=== PATIENT | female | born 1945 | race African-American/Black ===

== ENCOUNTER 2016-12-18 09:15 | Inpatient (IN) | payer MEDICARE ==
[~2016-12-18] VITALS: Ht 157.5 cm; Wt 73.8 kg
[2016-12-18 09:49] LABS: BASOPHILS 0.1 % (0-2); EOSINOPHILS 0.1 % (0-7); HEMATOCRIT 37.9 % (36.0-48.0); HEMOGLOBIN 12.6 g/dL (12-16); IMMATURE GRANULOCYTES 0.2 % (0-5); LYMPHOCYTES 13.2 % (15-50); MCHC 33.2 g/dL (31.0-37.0); MCV 93.1 fL (80.0-100.0); MONOCYTES 3.7 % (2-11); NEUTROPHILS 82.7 % (40-80); PLATELET COUNT 292 10x3/uL (130-400); RBC 4.07 10x6/uL (4.00-5.40); RDW 13.7 % (11.5-14.5); WBC 8.9 10x3/uL (4.8-10.8)
[2016-12-18 09:56] LABS: APPEARANCE CLOUDY (CLEAR); BILIRUBIN NEGATIVE (NEGATIVE); COLOR YELLOW (YELLOW); GLUCOSE NEGATIVE (NEGATIVE); KETONE MODERATE mg/dL (NEGATIVE); LEUKOCYTE ESTERASE NEGATIVE (NEGATIVE); NITRITE NEGATIVE (NEGATIVE); PROTEIN NEGATIVE (NEGATIVE); SPECIFIC GRAVITY 1.025 (1.005-1.020); UROBILINOGEN NORMAL (NORMAL)
[2016-12-18 09:57] LABS: BACTERIA MANY /hpf (NONE SEEN); HYALINE CAST OCC /lpf (NONE SEEN); MUCUS >1+ /lpf (NONE SEEN); RED CELLS - URINE 0-5 /hpf (0-5); WHITE CELLS - URINE OCC /hpf (0-5)
[2016-12-18 10:17] LABS: ALBUMIN 4.4 g/dL (3.4-5.0); ALKALINE PHOSPHATASE 68 U/L (46-116); ALT (SGPT) 20 U/L (10-68); BILIRUBIN - TOTAL 0.37 mg/dL (0.2-1.3); CALC OSMOLALITY 284 mosm/kg (275-300); CALCIUM 10.3 mg/dL (8.5-10.1); CARBON DIOXIDE 29.7 mmol/L (21.0-32.0); CHLORIDE - SERUM 100 mmol/L (98-107); CREATININE - SERUM 0.8 mg/dL (0.6-1.3); GLUCOSE 162 mg/dL (74-106); POTASSIUM - SERUM 3.4 mmol/L (3.5-5.1); PROTEIN - SERUM 7.9 g/dL (6.4-8.2); SODIUM 141 mmol/L (136-145); UREA NITROGEN 13 mg/dL (7-18); eGFR NON AFRICAN AMERICAN 75 mL/min (90-120)
[2016-12-18 10:19] LABS: LIPASE 99 U/L (73-393)
--- NOTE | 2016-12-18 15:03 | NUR ---
RECEIVED TO ROOM 2228 VIA STRETCHER FROM ER. A/O X3. C/O SOME ABDOMINAL DISCOMFORT. WILL MONITOR. SKIN IS INTACT WITHOUT REDNESS. IV TO LEFT FOREARM IS PATENT. NG TO LEFT NARE PATENT WITH GREENISH DISCHARGE NOTED.
[2016-12-18 15:30] VITALS: BP 140/78; BMI 28.4
[2016-12-18] MEDS ORDERED: COZAAR25 MG PO (15:50)
[2016-12-18] MEDS ORDERED: GLUCOPHAGE500 MG PO (15:50)
[2016-12-18] MEDS ORDERED: HYDROCHLOROTHIA25 MG GT (15:50)
[2016-12-18] MEDS ORDERED: NORVASC10 MG PO (15:51)
[2016-12-18] MEDS ORDERED: VICTOZA0.6 MG/0.1 SQ (15:52)
--- NOTE | 2016-12-18 17:00 | NUR ---
18 F POE PLACED USING STERILE TECHNIQUE. ENTIRE CONTENTS OF KIT UTILIZED. TOLERATED WELL.
--- NOTE | 2016-12-18 19:28 | NUR ---
DR. NGUYEN HERE EARLIER. HE STATED TO THE PATIENT HE THINKS SHE IS CONSTIPATED AND NOT A SBO. WILL MONITOR..
[2016-12-18 20:00] VITALS: BP 141/63
--- NOTE | 2016-12-18 21:46 | NUR ---
ALERT WITH NO COMPLAINTS VOICED. MAINTENANCE ASSISTANT MS IN USE FOR PAIN CONTROL. IV INFUSING TO LEFT FOREARM WITHOUT REDNESS OR EDEMA NOTED. NG TO LEFT NARE PATENT.CL IN REACH
[2016-12-19] VITALS (7 sets, daily range): BP systolic 116–141; BP diastolic 56–66; Ht 157.5 cm; Wt 73.8 kg
--- NOTE | 2016-12-19 03:06 | NUR ---
RESTING QUIETLY. NO DISTRESS NOTED. CL IN REACH.
--- NOTE | 2016-12-19 04:18 | NUR ---
EYES CLOSED RESPIRATIONS WITH EASE AND UNLABORED.
--- NOTE | 2016-12-19 06:08 | NUR ---
NO CHANGE IN ASSESSMENT. CL IN REACCH.
--- NOTE | 2016-12-19 07:45 | NUR ---
PT ASSESSMENT COMPLETE AWAKE AND ALERT ORIENTED X 3 LUNGS CLEAR BILATERALLY NGT TO LEFT NARE TO LIWS. NO BOWEL SOUNDS NOTED TO 4 QUADS ABDOMEN TENDER TO PALPATION. WILL MONITOR SIDE RAILS UP X 2 CALL LIGHT IN REACH .
--- NOTE | 2016-12-19 08:43 | HP ---
PATIENT: SAFIA GOLD MEDICAL RECORD: [id number] ACCOUNT: [id number] LOCATION:[facility] [place] [facility] : [birth year] ADMISSION DATE: 12/18/16 HISTORY AND PHYSICAL EXAMINATION DATE OF ADMISSION: 12/18/2016 ADMITTING PHYSICIAN: Mary Nguyen MD CHIEF COMPLAINT: Abdominal pain. HISTORY OF PRESENT ILLNESS: This is a 71-year-old female who complains of progressively worsening abdominal pain over the last 3 days. The pain is mainly located in the epigastric region and it is throbbing. She describes it as 6/10 and the pain is constant. It fluctuates in intensity. It is nonradiating. She states she has not had a bowel movement in 3 days. She has chronic constipation. No fever or chills at home. No dysuria, no hematuria. Denies any episodes of hematochezia or hematemesis. Denies melena. PAST MEDICAL HISTORY: COPD, hypertension, pneumonia and breast cancer. PAST SURGICAL HISTORY: Hysterectomy and bilateral mastectomy. ALLERGIES: No known drug allergies. HOME MEDICATIONS: Please see electronic medical record for full list of home medications. SOCIAL HISTORY: She drinks alcohol socially. FAMILY HISTORY: ____. REVIEW OF SYSTEMS: A 12-point review of system was obtained, pertinent positive and negative as per the HPI. PHYSICAL EXAMINATION: VITAL SIGNS: 97.9, heart rate 78, respirations 16, blood pressure ____ and satting 97% on room air. GENERAL: Well-nourished female in mild distress. EYES: Extraocular muscles are intact. EAR, NOSE, AND THROAT: Normal dentition. Mucous membranes are dry. NECK: Supple. CARDIOVASCULAR: Normal sinus rhythm. No murmur. LUNGS: Clear to auscultation bilaterally. No wheezing. ABDOMEN: Firm, moderately distended, tympanitic, diffusely tender to palpation. No guarding. No rebound. No peritoneal signs. No palpable hernia defects. SKIN: Warm and dry with normal turgor. EXTREMITIES: She is neurovascularly intact. No peripheral edema. NEUROLOGIC: She has a GCS of 15 with no focal deficits. LABORATORY DATA: Reviewed. Please see electronic medical record for full list of laboratory values. CT image was personally reviewed, which is consistent of partial small-bowel obstruction. HISTORY AND PHYSICAL [id number] SAFIA GOLD There is pain and dilatation of the small bowel with fecalization in the terminal ileum as well as stool throughout the colon consistent with partial small-bowel obstruction versus chronic constipation. PLAN: 1. Admit to med/surg, Dr. Nguyen. 2. IV fluid resuscitation. 3. IV narcotics for pain control. 4. IV antiemetics. 5. Suppository and enemas. 6. Repeat abdominal x-ray in a.m. 7. Repeat labs in a.m. TRANSINT:[id number] Voice Confirmation ID: [id number] DOCUMENT ID: [id number] MARY NGUYEN MD at 0843 CC: [id number] DICTATION DATE: 12/18/161943 LATEX FASHIONS DESIGNER: 12/19/16 0019 ADM IN [facility] [address] [place] [address]
--- NOTE | 2016-12-19 10:00 | NUR ---
NGT DISCONTINUED PER ORDER TOLERATED WELL. FAMILY AT SIDE
[2016-12-19 10:52] LABS: CALC OSMOLALITY 288 mosm/kg (275-300); CALCIUM 8.8 mg/dL (8.5-10.1); CARBON DIOXIDE 30.5 mmol/L (21.0-32.0); CHLORIDE - SERUM 107 mmol/L (98-107); CREATININE - SERUM 0.7 mg/dL (0.6-1.3); GLUCOSE 137 mg/dL (74-106); MAGNESIUM - SERUM 1.6 mg/dL (1.8-2.4); POTASSIUM - SERUM 3.4 mmol/L (3.5-5.1); SODIUM 145 mmol/L (136-145); eGFR NON AFRICAN AMERICAN 88 mL/min (90-120)
[2016-12-19 10:53] LABS: UREA NITROGEN 6 mg/dL (7-18)
[2016-12-19 11:19] LABS: BASOPHILS 0.2 % (0-2); EOSINOPHILS 1.2 % (0-7); HEMATOCRIT 32.9 % (36.0-48.0); HEMOGLOBIN 10.7 g/dL (12-16); IMMATURE GRANULOCYTES 0.2 % (0-5); MCH 30.8 pg (26.0-34.0); MCHC 32.5 g/dL (31.0-37.0); MCV 94.8 fL (80.0-100.0); MEAN PLATELET VOLUME 9.2 fL (7.4-10.4); MONOCYTES 10.2 % (2-11); NEUTROPHILS 67.2 % (40-80); PLATELET COUNT 275 10x3/uL (130-400); RBC 3.47 10x6/uL (4.00-5.40); RDW 14.1 % (11.5-14.5)
--- NOTE | 2016-12-19 11:22 | NUR ---
PATIENT RESTING IN THE BED. PATIENT IS AWAKE, ALERT, AND ORIENTED X4. AT PATIENT'S BEDSIDE. DATA CENTER ARCHITECT MORPHNE IN USE FOR PATIENT'S PAIN CONTROL. IV SITE PATENT WITHOUT ANY S/S OF INFECTION NOTED IN PATIENT'S LEFT ARM. D5LR INFUSING @ 125 ML/HR. POE CATHETER PATENT AND DRAINING CLEAR YELLOW URINE. PATIENT DENIES ANY PAIN OR NAUSEA AT PRESENT ITME. CALL LIGHT IN PATIENT'S REACH. PATIENT REQUESTS A BATH BASIN. BATH BASIN AND WASHCLOTH AND TOWELS PROVIDED TO PATIENT. WILL CHRIS PATIENT.
[2016-12-19 11:23] LABS: WBC 5.7 10x3/uL (4.8-10.8)
--- NOTE | 2016-12-19 13:12 | NUR ---
PT COMPLAINS OF ABDOMINAL CRAMPING DENIES PASSING GAS TOLD PT THAT THIS NURSE WILL ASSIST TO AMBULATE TO MOVE GAS AND AID IN BOWEL MOVEMENT
--- NOTE | 2016-12-19 15:12 | NUR ---
Patient Name: SAFIA GOLD Admission Status: ER Accout number: [id number] Admission Date: 12-18-2016 : 1945 Admission Diagnosis: Attending: HUSSAIN Current LOS: 1 Anticipated DC Date: 12-23-2016 Planned Disposition: Home Primary Insurance: MEDICARE A & B Discharge Planning Comments: CM MET WITH PATIENT REGARDING D/C NEEDS AND PLANS. PATIENT STATED SHE LIVES WITH HER SPOUSE (ANSELMO) AND HE WILL DRIVE HER HOME AT DISCHARGE. PATIENT STATED SHE HAS NO STEPS OR STAIRS TO ENTER HER HOME. PATIENT IS INDEPENDENT WITH HER CARE AND HAS A GLUCOMETER AT HOME (CKS EVERY 2 DAYS). PATIENTS PCP IS DR. SCHAEFER AND [facility]. PATIENT DENIES NEEDS FOR HOME HEALTH OR ANY OTHER NEEDS AT DISCHARGE. CM WILL CONTINUE TO FOLLOW PATIENT WITH D/C NEEDS AND PLANS. [facility] [address] [phone] ANSELMO ( SPOUSE) [phone] Director [employer] Marketing: Sharla Richardson Is the patient Alert and Oriented? Yes 0 * How many steps to enter\exit or inside your home? 0 0 * PCP DR. SCHAEFER 0 * [facility] [address] 0 * Preadmission Environment Home with Family 0 * ADLs Independent 0 * Equipment Glucometer 0 * List name and contact numbers for known caregivers / representatives who currently or will assist patient after discharge: ANSELMO (SPOUSE) [phone] 0 * Community resources currently utilized None 0 * Additional services required to return to the preadmission environment? Yes 0 * Can the patient safely return to the preadmission environment? Yes 0 * Has this patient been hospitalized within the prior 30 days at any hospital? No 0 Grand Total: 0
--- NOTE | 2016-12-19 18:45 | NUR ---
PT AMBULATED IN HALLWAY EARLIER AND AFTER 1500 FEET AMBULATION NOTED PASSING FLATULENCE AND HAD SMALL BOWEL MOVEMENT. FORMED BROWN STOOL.
[2016-12-20] VITALS: BP 127/65
--- NOTE | 2016-12-20 01:26 | NUR ---
RESTING WITH EYES CLOSED, NO DISTRESS NOTED, SR'S UP, BED LOW, CL IN REACH
[2016-12-20 04:00] VITALS: BP 120/61
--- NOTE | 2016-12-20 04:53 | NUR ---
NO CHANGE IN ASSESSMENT. CL IN REACH
[2016-12-20 06:31] LABS: BASOPHILS 0.2 % (0-2); EOSINOPHILS 1.9 % (0-7); HEMATOCRIT 29.9 % (36.0-48.0); LYMPHOCYTES 34.1 % (15-50); MCH 31.5 pg (26.0-34.0); MCHC 33.4 g/dL (31.0-37.0); MCV 94.3 fL (80.0-100.0); MONOCYTES 13.5 % (2-11); NEUTROPHILS 50.3 % (40-80); PLATELET COUNT 234 10x3/uL (130-400); RBC 3.17 10x6/uL (4.00-5.40); RDW 14.1 % (11.5-14.5)
[2016-12-20 06:32] LABS: WBC 4.2 10x3/uL (4.8-10.8)
[2016-12-20 07:24] LABS: ANION GAP 9.8 mmol/L (8-16); CALCIUM 8.5 mg/dL (8.5-10.1); CARBON DIOXIDE 28.9 mmol/L (21.0-32.0); MAGNESIUM - SERUM 1.8 mg/dL (1.8-2.4); POTASSIUM - SERUM 3.7 mmol/L (3.5-5.1)
--- NOTE | 2016-12-20 07:30 | NUR ---
SOME COMPLAINTS OF ITCHING, STATES ALL SHE NEEDS IS A BENADRYL, "IT HAPPENS WHEN I'M NERVOUS/ANXIOUS, I ITCHED ALL NIGHT AND THE NURSE DIDN'T DO ANYTHING ABOUT IT" WILL CONTINUE TO MONITOR
[2016-12-20 07:32] LABS: CREATININE - SERUM 0.9 mg/dL (0.6-1.3)
[2016-12-20 08:09] VITALS: BP 107/57
--- NOTE | 2016-12-20 11:22 | NUR ---
SOME COMPLAINTS OF ABDOMINAL CRAMPS, DENIES OTHER NEEDS, HOPEFUL FOR DISCHARGE
[2016-12-20 12:38] VITALS: BP 137/67
--- NOTE | 2016-12-20 13:00 | NUR ---
HAS HAD A COUPLE WATERY BOWEL MOVEMENTS
[2016-12-20] MEDS ORDERED: BENADRYL25 MG PO (14:25)
[2016-12-20] MEDS ORDERED: ZOFRAN ODT4 MG/UDTAB PO (14:25)
[2016-12-20 15:32] VITALS: BP 120/62
--- NOTE | 2016-12-20 16:25 | NUR ---
CM REASSESSMENT NOTE: PATIENT IS DISCHARGING HOME AND FAMILY IS DRIVING HER. PATIENT REFUSED HOME HEALTH AND DENIED ANY OTHER NEEDS FOR DISCHARGE.
--- NOTE | 2016-12-20 16:40 | NUR ---
PT SEEN AT THIS TIME, SITTING UP IN BED WITH NO COMPLAINTS OF PAIN OR DISCOMFORT. CALL LIGHT WITHIN REACH. WILL CONTINUE TO MONITOR.
--- NOTE | 2016-12-20 18:13 | NUR ---
DISCHARGE PAPERS AND INSTRUCTIONS GIVEN, QUESTIONS ANSWERED, IV REMOVED TIP INTACT, DISCHARGED PER WC WITH BELONGINGS
== END 2016-12-20 18:14 | disposition home or self-care (01) | DRG 389 ==
LOC: D.ER 09:15 → D.MS 13:57 → D.SDCHOLD 13:57 → D.MS 14:56
PROVIDERS: Emergency Medicine; ADMIT Surgery
DX: K56.60 Unspecified intestinal obstruction (principal); D62 Acute posthemorrhagic anemia; J44.9 Chronic obstructive pulmonary disease, unspecified; I10 Essential (primary) hypertension; E11.9 Type 2 diabetes mellitus without complications; K57.30 Diverticulosis of large intestine without perforation or abscess without bleeding; Z85.3 Personal history of malignant neoplasm of breast

== ENCOUNTER → 2017-08-01 09:38 | Outpatient (CLI) | payer MEDICARE ==
[2016-12-19 14:33] VITALS: BMI 30.9
[~2017-08-01 09:38] MED LIST: BENADRYL25 MG PO; COZAAR25 MG PO; GLUCOPHAGE500 MG PO; HYDROCHLOROTHIA25 MG GT; NORVASC10 MG PO; VICTOZA0.6 MG/0.1 SQ; ZOFRAN ODT4 MG/UDTAB PO
== END | disposition home or self-care (01) ==
LOC: D.MRI 07-21 14:30
DX: M25.512 Pain in left shoulder (principal)

== ENCOUNTER 2017-09-11 12:26 | Day surgery (SDC) | payer MEDICARE ==
[2017-09-10 14:11] LABS: HEMATOCRIT 35.5 % (36.0-48.0); HEMOGLOBIN 11.7 g/dL (12-16); MCH 30.3 pg (26.0-34.0); MEAN PLATELET VOLUME 9.2 fL (7.4-10.4); RBC 3.86 10x6/uL (4.00-5.40); RDW 14.4 % (11.5-14.5); WBC 6.1 10x3/uL (4.8-10.8)
[2017-09-10 14:37] LABS: CALC OSMOLALITY 282 mosm/kg (275-300); CALCIUM 9.6 mg/dL (8.5-10.1); CHLORIDE - SERUM 104 mmol/L (98-107); CREATININE - SERUM 0.8 mg/dL (0.6-1.3); GLUCOSE 166 mg/dL (74-106); POTASSIUM - SERUM 3.9 mmol/L (3.5-5.1); SODIUM 140 mmol/L (136-145); UREA NITROGEN 13 mg/dL (7-18); eGFR NON AFRICAN AMERICAN 75 mL/min (90-120)
--- NOTE | ~2017-09-11 | OP ---
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 POSTOPERATIVE DIAGNOSES: Impingement syndrome with acromioclavicular arthritis of the left shoulder plus full-thickness rotator cuff tear. PROCEDURES: 1. Arthroscopic rotator cuff repair. 2. Arthroscopic distal clavicle excision done through separate incision -- 1 cm. 3. Arthroscopic subacromial decompression with acromioplasty and bursectomy. SURGEON: Mary Trevino MD ANESTHESIA: General. INTRAOPERATIVE COMPLICATIONS: None. SUMMARY OF PATHOLOGIC FINDINGS: The patient was indeed found to have a full-thickness rotator cuff tear, not initially expected by the MRI. She also had a very profound downward sloping acromion as well as acromioclavicular arthritis. OPERATIVE SUMMARY IN DETAIL: After obtaining the appropriate preoperative orthopedic surgery consent as well as anesthetic consultation, evaluation, and clearance, the patient was brought to the operating room and placed on the operating table in supine position. After adequate general laryngeal mask was administered, the patient was placed in a right lateral decubitus position. All pressure points were well padded to include down leg peroneal pad as well as axillary roll. The patient was held firmly to the operating table using the vacuum pack suction system. Left upper extremity and shoulder were then prepped and draped in routine sterile fashion. The arm was held in the Arthrex traction boom at 30 degrees of forward flexion, 30 degrees of abduction, 10 pounds of traction laterally. Arthroscopy was established in the glenohumeral joint from a posterior portal. Anterior portal was established in the anterior safe interval. Diagnostic arthroscopy revealed the small full-thickness tear of the rotator cuff. Trans-arthroscopic rotator cuff portal was created for debridement of the articular side of the supraspinatus footprint. Attention was then turned to the subacromial space. While in subacromial space, [place] tissue ablation system was utilized to denude the undersurface of the acromion of all soft tissue elements and released coracoacromial ligament. A 5-0 barrel bur was used to perform acromioplasty at the level of acromioclavicular joint. Through a separate portal under direct arthroscopic visualization, the distal clavicle was excised in its entirety for 1 cm. The residual on the bursa was taken down and the rotator cuff tear itself was addressed. Further decortication was taken down on the supraspinatus tendinous footprint. A single #2 FiberTape was then placed in an inverted mattress style fashion and anchored laterally with a 5.5 SwiveLock from Arthrex. Having completed this, arthroscopy portals were closed in routine interrupted OPERATIVE REPORT [id number] SAFIA GOLD fashion using 4-0 Prolene. Sterile dressings were applied. The patient was awakened, taken to the recovery room in stable condition. All final needle and sponge counts were correct. TRANSINT:[id number] Voice Confirmation ID: [id number] DOCUMENT ID: [id number] BELINDA JACINTO, MARY CAMEJO at 0826 CC: [id number] DICTATION DATE: 09/14/17 1155 CREAM DUMPER: 09/14/17 1531 [facility] 09/11/[address] [address]
[~2017-09-11 12:26] MED LIST changes: +AMBIEN10 MG PO; -COZAAR25 MG PO; +HYZAAR 50-12.51 TAB PO
[2017-09-11] MEDS ORDERED: LEVSIN/ANASP0.125 MG PO (13:14)
[2017-09-11 13:21] VITALS: BMI 29.3
== END 2017-09-11 18:20 | disposition home or self-care (01) ==
LOC: D.OPS 12:26
PROVIDERS: Anesthesiology
DX: M25.812 Other specified joint disorders, left shoulder (principal); M19.012 Primary osteoarthritis, left shoulder; M75.102 Unspecified rotator cuff tear or rupture of left shoulder, not specified as traumatic; I10 Essential (primary) hypertension; E11.9 Type 2 diabetes mellitus without complications; K21.9 Gastro-esophageal reflux disease without esophagitis; Z01.812 Encounter for preprocedural laboratory examination

== ENCOUNTER 2017-10-16 14:08 | Emergency (ER) | payer MEDICARE ==
[~2017-10-16 14:08] MED LIST changes: +LEVSIN/ANASP0.125 MG PO
== END 2017-10-16 15:46 | disposition home or self-care (01) ==
LOC: D.ER 14:08
DX: R55 Syncope and collapse (principal); E11.9 Type 2 diabetes mellitus without complications; I10 Essential (primary) hypertension; D64.9 Anemia, unspecified; Z85.3 Personal history of malignant neoplasm of breast

== ENCOUNTER → 2017-12-01 10:44 | Outpatient (CLI) | payer MEDICARE | END | disposition home or self-care (01) | LOC: D.MRI 10:44 | DX: M25.512 Pain in left shoulder (principal) ==

== ENCOUNTER 2018-02-09 09:54 | Day surgery (SDC) | payer MEDICARE ==
[~2018-02-09] VITALS: Ht 157.5 cm; Wt 71.2 kg
--- NOTE | ~2018-02-09 | OP ---
PATIENT NAME: SAFIA GOLD MEDICAL RECORD: [id number] :49 LOCATION:D.[facility] ADMISSION DATE: SURGEON: MARY TREVINO MD DATE OF OPERATION: 02/09/2018 PREOPERATIVE DIAGNOSES: Postoperative adhesive capsulitis of left shoulder. POSTOPERATIVE DIAGNOSIS: Postoperative adhesive capsulitis of left shoulder. PROCEDURE: Manipulation of left shoulder. SURGEON: Mary Trevino MD ANESTHESIA: General. INTRAOPERATIVE COMPLICATIONS: None. SUMMARY OF PATHOLOGIC FINDINGS: Essentially consistent with the patient's preoperative diagnosis. She had adhesive capsulitis. OPERATIVE SUMMARY IN DETAIL: After obtaining the appropriate preoperative orthopaedic surgery consent as well as anesthetic consultation, evaluation, and clearance, the patient was brought to the hospital room and left on her hospital bed. She was given TIVA anesthesia and she had already had a preoperative supraclavicular block. The scapula was stabilized. The shoulder was first manipulated in abduction followed by external rotation, internal rotation, forward flexion, and then lastly abduction. Good release was achieved and the patient was able to get full glenohumeral articulation. Having completed this, the patient was awakened and taken back to outpatient in stable condition. TRANSINT:[id number] Voice Confirmation ID: [id number] DOCUMENT ID: [id number] MARY TREVINO MD at 1147 CC: [id number] DICTATION DATE: 02/09/18 1502 FOLDER MACHINE: 02/09/18 1617 [facility] 02/09/[address] [address]
[2018-02-09 10:13] LABS: HEMATOCRIT 33.8 % (36.0-48.0); HEMOGLOBIN 11.2 g/dL (12-16); MCH 31.4 pg (26.0-34.0); MCHC 33.1 g/dL (31.0-37.0); MCV 94.7 fL (80.0-100.0); MEAN PLATELET VOLUME 8.5 fL (7.4-10.4); RBC 3.57 10x6/uL (4.00-5.40); RDW 13.8 % (11.5-14.5); WBC 6.2 10x3/uL (4.8-10.8)
[2018-02-09] MEDS ORDERED: ASCORBIC ACID500 MG PO (12:09)
[2018-02-09] MEDS ORDERED: VITAMIN D31000 UNI2 PO (12:10)
[2018-02-09] MEDS ORDERED: BAYER CHEWABLE81 MG PO (12:10)
[2018-02-09] MEDS ORDERED: FISH OIL 1,0001 CA1 PO (12:10)
[2018-02-09] MEDS ORDERED: LIPITOR20 MG PO (12:11)
[2018-02-09 12:18] VITALS: BP 120/75; Ht 157.5 cm; Wt 71.2 kg
== END 2018-02-09 15:00 | disposition home or self-care (01) ==
LOC: D.OPS 09:54
PROVIDERS: Anesthesiology
DX: K66.0 Peritoneal adhesions (postprocedural) (postinfection) (principal); Z01.810 Encounter for preprocedural cardiovascular examination; Z01.811 Encounter for preprocedural respiratory examination; Z01.812 Encounter for preprocedural laboratory examination